=== PATIENT | male | born 1950 | race Caucasian/White ===

== ENCOUNTER 2019-01-26 03:27 | Inpatient (IN) | payer MEDICARE ==
[~2019-01-26] VITALS: Ht 167.6 cm; Wt 51.7 kg
[2019-01-26 03:52] LABS: BASOPHILS ABSOLUTE AUTO 0.01 K/mm3 (0.00-0.23); BASOPHILS PERCENT AUTO 0 % (0-2); EOSINOPHILS PERCENT AUTO 0 % (0-6); Hematocrit 44.9 % (37.0-53.0); Hemoglobin 14.5 g/dL (13.5-17.5); IMMATURE GRAN ABSOLUTE AUTO 0.06 K/mm3 (0.00-0.10); IMMATURE GRAN PERCENT AUTO 0 % (0-1); LYMPHOCYTES ABSOLUTE AUTO 0.55 K/mm3 (0.84-5.20); LYMPHOCYTES PERCENT AUTO 4 % (21-46); MONOCYTES ABSOLUTE AUTO 0.25 K/mm3 (0.16-1.47); MONOCYTES PERCENT AUTO 2 % (4-13); Mean Corpuscular HGB 30.5 pg (26.0-34.0); Mean Corpuscular HGB Conc 32.3 g/dL (31.5-36.5); Mean Corpuscular Volume 95 fL (80-100); Mean Platelet Volume 9.7 fL (9.1-12.4); NEUTROPHILS ABSOLUTE AUTO 12.76 K/mm3 (1.96-9.15); NEUTROPHILS PERCENT AUTO 94 % (41-73); Platelet Count 156 K/mm3 (150-400); RDW Coefficient Variation 14.5 % (11.7-14.2); RDW Standard Deviation 50.5 fL (35.1-46.3); Red Blood Cell Count 4.75 M/mm3 (4.30-5.90); White Blood Cell Count 13.63 K/mm3 (4.00-11.30)
[2019-01-26 04:05] LABS: PCO2 Arterial 43.3 mmHg (35-45); PO2 Arterial 109 mmHg (80-100); pH Blood Arterial 7.33 (7.35-7.45)
[2019-01-26 04:13] LABS: Alanine Aminotransfer (ALT/SGP 130 U/L (12-78); Albumin, Blood 3.8 g/dL (3.4-5.0); Albumin/Globulin Ratio 1.1 (0.8-1.8); Alk Phos 369 U/L (50-136); Anion Gap 7 mmol/L (6-16); Aspartate Aminotrans (AST/SGOT 60 U/L (12-37); Bilirubin, Total 0.5 mg/dL (0.1-1.0); Blood Urea Nitrogen 13 mg/dL (8-24); Bun/Creatinine Ratio 24.6 (12.0-20.0); CO2, Blood 23 mmol/L (21-32); Calcium, Blood 8.2 mg/dL (8.5-10.1); Chloride, Blood 101 mmol/L (98-108); Creatinine, Blood 0.53 mg/dL (0.60-1.20); Globulin, Blood 3.6 g/dL (2.2-4.0); Glomerular Filtration Rate >60 (60-); Glucose, Blood 150 mg/dL (70-99); Potassium, Blood 4.7 mmol/L (3.5-5.5); Sodium, Blood 131 mmol/L (136-145); Total Protein, Blood 7.4 g/dL (6.4-8.2); Troponin I <0.015 ng/mL (0.000-0.040)
[2019-01-26] MEDS ORDERED: ALBU90OI INH (05:53)
[2019-01-26] MEDS ORDERED: PRED20 PO ×2 (05:54→07:21)
[2019-01-26] MEDS ORDERED: OSELTAMIVIR PHO75 MG PO (05:54)
--- NOTE | 2019-01-26 06:54 | NUR ---
ARRIVAL TO ICU: PT TRANSFERRED TO ICU 14 VIA GURNEY WITH MONITOR ATTACHED AND RN AT BEDSIDE. PT VERY PLEASANT AND COOPERATIVE WITH CARE. HAS A NON PRODUCTIVE LOOSE COUGH. 20G IV R WRIST S/L. 20G IV L HAND WITH LEVAQUIN RUNNING. PT HAS UMBILICAL BRUISING NOTED; WHEN ASKED ABOUT IT, HE STATES HE RECENTLY HAD HERNIA SURGERY. PT WISHES TO WASH HIMSELF UP BEFORE GETTING SETTLED IN THE BED. BED BATH SUPPLIES GIVEN TO PT; PT WANTS PRIVACY. REPORT GIVEN TO OVIDIO MENARD.
[2019-01-26] MEDS ORDERED: FURO40 PO (07:21)
[2019-01-26] MEDS ORDERED: MOME220I INH (07:22)
[2019-01-26] MEDS ORDERED: Atrovent Inha12.9 GM INH (07:23)
--- NOTE | 2019-01-26 08:00 | NUR ---
DR. ALVAREZ AT BEDSIDE FOR EVALUATION. NEW ORDERS PROVIDED.
--- NOTE | 2019-01-26 09:30 | NUR ---
ADMISSION SUMMARY ALERT AND ORIENTED X4. PT COMMUNICATING THAT HE IS HOMELESS AND ADMITS TO NON-COMPLIANCE WITH HIS MEDICATIONS, UNABLE TO EXPRESS WHAT MEDICATIONS HE IS ACTUALLY SUPPOSED TO BE TAKING BECAUSE HE HAS HAD MULTIPLE ER VISITS AND HOSPITALIZATIONS IN DIFFERENT STATES. TEARFUL WHEN TALKING ABOUT HAVING PTSD AND THE ISSUES WITH HIS EX-. INSTRUCTED THAT IT MIGHT BE HELPFUL IF HE SPOKE WITH ONE OF OUR SOCIAL WORKERS TO BE CONNECTED WITH COMMUNITY RESOURCES THAT MIGHT HELP HIM [place]. PT WILLING. ORDERES SYSTEM SAFETY MANAGER CONSULT. SR TO ST ON MONITOR, WITH BBB. HR INCREASES WITH EXERTION AND SOB. LUNGS COARSE THROUGHOUT, 2L O2 NC, SATS 98-100%, DYSPNEIC AND DESATS WITH EXERTION, SITTING UP AT THE BEDSIDE TO VOID PER URINAL. DESATS TO 77% WITH EXERTION. PT STATED HE GOT TANGLED IN THE CORDS AND FRUSTRATED WITH EXERTION. INSTRUCTED PT TO CALL FOR ASSISTANCE WHEN SITTING UP OR WHEN HE NEEDS TO GET OUT OF BED SO WE CAN HELP WITH THE CORDS. VERBALIZED GOOD UNDERSTANDING. VOIDS PER URINAL ADEQUATE AMOUNTS OF CLEAR YELLOW URINE. TOLERATING A REGULAR DIET, POOR APPETITE, STATED HE HAS LOST ABOUT 40 LBS IN THE LAST 6 MONTHS, ALSO USES METH AND MARIJUANA ON A REGULAR BASIS, LAST SMOKED MARIJUANA YESTERDAY AND LAST USED METH 3 DAYS AGO. NO ISSUES WITH CHEWING OR SWALLOWING. ABDOMEN WITH HEALING LAPROSCOPIC SITES FROM RECENT UMBILICAL HERNIA REPAIR THAT OCCURRED IN [place]. PT ALSO STATED HE HAD A BLOOD CLOT IN HIS ABODEMN WHILE HOSPITALIZED IN [place]. PT RECEIVING LOVENOX. ON SOLUMEDROL. ABLE TO REPOSITION SELF IN THE BED. RIGHT WRIST FIELD START SALINE LOCK AND LEFT HAND SALINE LOCK STARTED HERE. CALL LIGHT WITHIN REACH.
[2019-01-26 10:34] LABS: Adenovirus Not Detected (NOT DETECT); Bordetella pertussis Not Detected (NOT DETECT); Chlamydophila pneumoniae Not Detected (NOT DETECT); Coronavirus 229E Not Detected (NOT DETECT); Coronavirus HKU1 Not Detected (NOT DETECT); Coronavirus NL63 Not Detected (NOT DETECT); Coronavirus OC43 Not Detected (NOT DETECT); Human Metapneumovirus Not Detected (NOT DETECT); Human Rhinovirus/Enterovirus Not Detected (NOT DETECT); Influenza A Not Detected (NOT DETECT); Influenza A/2009-H1 Not Detected (NOT DETECT); Influenza A/H1 Not Detected (NOT DETECT); Influenza A/H3 Not Detected (NOT DETECT); Influenza B Detected (NOT DETECT); Mycoplasma pneumoniae Not Detected (NOT DETECT); Parainfluenza Virus 1 Not Detected (NOT DETECT); Parainfluenza Virus 2 Not Detected (NOT DETECT); Parainfluenza Virus 3 Not Detected (NOT DETECT); Parainfluenza Virus 4 Not Detected (NOT DETECT); Respiratory Syncytial Virus Not Detected (NOT DETECT)
--- NOTE | 2019-01-26 18:06 | NUR ---
NURSING SUMMARY - MEDICAL NON-TELE STATUS ALERT AND ORIENTED X 4. SR - ST ON MONITOR WITH BBB, HR 90'S - 105, INCREASES WITH EXERTION. LUNGS COARSE THROUGHOUT, RESPONSIVE TO RESPIRATORY BREATHING TREATMENTS EVERY 4 HOURS, COUGHING, SENT SPUTUM AND RESPIRATORY PANEL PCR TO LAB. 2L O2 NC, DESATS WITH EXERTION, TYPICALLY SATS 97-100% ON 2L 02 NC. VOIDS PER URINAL, ADEQUATE AMOUNTS OF CLEAR YELLOW URINE. CALLS FOR ASSISTANCE APPROPRIATELY. LEFT HAND AND RIGHT WRIST SALINE LOCKS.
--- NOTE | 2019-01-26 19:00 | NUR ---
Piatt of Care: Patient alert and oriented x4, sitting upright in bed watching t.v. Denies pain, discomfort, SOB, or dyspnea. VSS, O2-95-99% on 2L/NC. Using urinal at bedside without difficulty. Peripheral IV's x2 patent and intact, saline locked at this time. Call light in reach, makes needs known. Will continue to monitor for pain, comfort, safety.
[2019-01-27 03:36] LABS: Hematocrit 39.2 % (37.0-53.0); Hemoglobin 12.7 g/dL (13.5-17.5); Mean Corpuscular HGB 30.5 pg (26.0-34.0); Mean Corpuscular HGB Conc 32.4 g/dL (31.5-36.5); Mean Corpuscular Volume 94 fL (80-100); Mean Platelet Volume 10.1 fL (9.1-12.4); Platelet Count 150 K/mm3 (150-400); RDW Coefficient Variation 14.6 % (11.7-14.2); RDW Standard Deviation 50.7 fL (35.1-46.3); Red Blood Cell Count 4.16 M/mm3 (4.30-5.90); White Blood Cell Count 14.93 K/mm3 (4.00-11.30)
[2019-01-27 03:56] LABS: Alanine Aminotransfer (ALT/SGP 80 U/L (12-78); Alk Phos 258 U/L (50-136); Anion Gap 6 mmol/L (6-16); Aspartate Aminotrans (AST/SGOT 21 U/L (12-37); Bilirubin, Total 0.5 mg/dL (0.1-1.0); Blood Urea Nitrogen 13 mg/dL (8-24); Bun/Creatinine Ratio 26.5 (12.0-20.0); CO2, Blood 29 mmol/L (21-32); Calcium, Blood 8.4 mg/dL (8.5-10.1); Chloride, Blood 103 mmol/L (98-108); Creatinine, Blood 0.49 mg/dL (0.60-1.20); Globulin, Blood 3.1 g/dL (2.2-4.0); Glomerular Filtration Rate >60 (60-); Glucose, Blood 137 mg/dL (70-99); Potassium, Blood 4.1 mmol/L (3.5-5.5); Sodium, Blood 138 mmol/L (136-145); Total Protein, Blood 6.1 g/dL (6.4-8.2)
--- NOTE | 2019-01-27 06:05 | NUR ---
Shift Summary: Patient slept well throughout shift, easily roused via verbal stimuli. Continues to deny pain/discomfort. Woke x1 this shift with c/o SOB, O2% 94-95% on RA. PRN nebulizer tx given at that time with good effect noted. VSS throughout shift. Tolerated PO fluids without difficulty. Peripheral IV's remain patent and intact. Voiding using urinal at bedside without difficulty. Sleeping at this time. Will continue to monitor until report to day shift RN.
--- NOTE | 2019-01-27 07:20 | NUR ---
RECEIVED REPORT FROM DERIAN GUSTAFSON, AND ASSUMED CARE OF PT.
--- NOTE | 2019-01-27 10:30 | NUR ---
DR. NAYLOR AT BEDSIDE FOR EVALUATION. STATED HE WAS GOING TO DISCHARGE PT HOME TODAY.
[2019-01-27] MEDS ORDERED: Prednisone20 MG PO (13:37)
[2019-01-27] MEDS ORDERED: ACET325 PO (13:38)
[2019-01-27] MEDS ORDERED: LEVO750 PO (13:40)
[2019-01-27] MEDS ORDERED: NICO21TP TOP (13:40)
[2019-01-27] MEDS ORDERED: ONDA4ODT MM (13:41)
[2019-01-27] MEDS ORDERED: OSEL75CA PO (13:41)
[2019-01-27] MEDS ORDERED: ROBITUSSIN DM PO (13:44)
--- NOTE | 2019-01-27 14:34 | NUR ---
PATIENT PROVIDED WITH DISCHARGE INSTRUCTIONS. ANSWERED ALL QUESTIONS. FAXED PRESCRIPTIONS TO [facility], [place],OR, PER PATIENT REQUEST. CALLED [facility] IN [facility] AND WAS ADVISED THAT WE NEEDED TO CALL THE PATIENT'S [facility]IMARY [facility] IN [place], [place]. PT REFUSED MY REACHING OUT TO THE [facility] IN [place]. INSTEAD, PT ASKED THAT I FAX THE PRESCRIPTION TO [facility] IN [place] WHERE HE WILL PICK THEM UP AND WALK[facility]TO THE [facility] [place] TO GET HIS PRESCRIPTIONS APPROVED. PATIENT AMBULATED OUT OF THE ICU INDEPENDENTLY. HE HAS A [facility] AWAITING HIM IN THE FRONT OF THE HOSPITAL TO TAKE HIM TO THE BUS STOP. PT STATED HE HAS A TICKET TO MAKE IT TO [place] AROUND 1900 TONIGHT.
== END 2019-01-27 14:40 | disposition home or self-care (01) | DRG 871 ==
LOC: ER 03:27 → ICUW 05:07
PROVIDERS: Emergency Medicine; ADMIT Internal Medicine
PROC: 5A09357 Assistance with Respiratory Ventilation, Less than 24 Consecutive Hours, Continuous Positive Airway Pressure (ICD-10-PCS; principal; 2019-01-26)
DX: A41.9 Sepsis, unspecified organism (principal); J10.08 Influenza due to other identified influenza virus with other specified pneumonia; J96.21 Acute and chronic respiratory failure with hypoxia; J44.1 Chronic obstructive pulmonary disease with (acute) exacerbation; J44.0 Chronic obstructive pulmonary disease with (acute) lower respiratory infection; F17.210 Nicotine dependence, cigarettes, uncomplicated; Z59.0 Homelessness
CPT/HCPCS: 36415; 36600; 71045; 80053; 82803; 83605; 83880; 84145; 84484; 85025; 85027; 87070; 87077; 87147; 87186; 87205; 87486; 87581; 87633; 87798; 93005; 93010; 94640; 96365; 96367; 96375; 99285-25; J0696; J1650; J1956; J2930; J7030